=== PATIENT | male | born 1955 | race Caucasian/White ===

== ENCOUNTER → 2021-06-22 | Outpatient (CLI) | payer OTHER ==
[~2021-06-22] MED LIST: CRESTOR20 MG PO; DEPAKOTE250 MG PO; DIVALPROEX SOD500 MG PO; IRBESARTAN-HCT1 EAC1 PO; LEVETIRACETAM750 MG PO; METOPROLOL TART25 MG PO; NORVASC10 MG PO; ZONEGRAN100 MG PO
--- NOTE | 2021-06-22 08:54 | EKG ---
[address] [address] [place] [address] ELECTROCARDIOGRAM REPORT Name: VADIM SWAIN Room #: LARISA Sandhu#: [id number] Admission: 06/22/21 Attend Phys: Nikita Stewart MD Discharge: Date of : 51 Report #: [id number] [facility] Test Date: 2021-06-22 Test Time: 08:44:23 Pat Name: VADIM SWAIN Department: Room: Gender: M Payroll Services Analyst: NADER : 1955 Requested By: Nikita Stewart Order Number: [id number] MD: John Hilliard Measurements Intervals [place] Rate: 67 P: 40 DC: 165 QRS: 16 QRSD: 102 T: 30 QT: 393 QTc: 415 Interpretive Statements Sinus rhythm Ventricular premature complex Abnormal R-wave progression, early transition Inferior infarct, old Baseline wander in lead(s) V1 No previous ECG available for comparison Electronically Signed On 06-22-2021 8:54:37 CDT by John Hilliard [email or web address] <ELECTRONICALLY SIGNED> By: John Hilliard MD, [facility] 06/22/21 0854 [id number] 0844 John Hilliard MD, FACC /EPI
[2021-06-22 09:01] LABS: HEMOGLOBIN 14.6 gm/dL (14.0-18.0); MCH 31.8 pg (26.0-34.0); MCHC 33.3 g/dL (28.0-37.0); MCV 95.6 fL (80.0-100.0); RBC 4.6 mil/uL (4.50-6.00); RDW 12.9 % (10.5-14.5); WBC 8.1 thou/uL (4.0-11.0)
[2021-06-22 09:07] LABS: URINE BILIRUBIN NEGATIVE (Negative); URINE BLOOD NEGATIVE (Negative); URINE CLARITY CLEAR; URINE COLOR YELLOW; URINE GLUCOSE-RANDOM* NEGATIVE (Negative); URINE KETONES TRACE (Negative); URINE LEUKOCYTES-REFLEX NEGATIVE (Negative); URINE NITRITE-REFLEX NEGATIVE (Negative); URINE PROTEIN (DIPSTICK) NEGATIVE (Negative); URINE SPECIFIC GRAVITY 1.025 (1.005-1.035); URINE UROBILINOGEN 0.2 E.U./dl (0.2-1.0)
[2021-06-22 09:17] LABS: INR 0.98; PROTIME 10.7 Seconds (10.5-12.1)
[2021-06-22 09:20] LABS: ALBUMIN 3.3 g/dL (3.4-5.0); CALCIUM 8.8 mg/dL (8.5-10.1); CREATININE 1.1 mg/dL (0.7-1.3); POTASSIUM 3.8 mmol/L (3.5-5.1)
== END | disposition home or self-care (01) ==
LOC: PAC 08:01
PROVIDERS: ATTEND Orthopaedic Surgery
DX: Z01.818 Encounter for other preprocedural examination (principal); M17.9 Osteoarthritis of knee, unspecified; M25.561 Pain in right knee; R94.31 Abnormal electrocardiogram [ECG] [EKG]

== ENCOUNTER 2021-07-03 06:47 | Observation (INO) | payer OTHER ==
[~2021-07-03] VITALS: Ht 175.3 cm; Wt 97.5 kg
[2021-07-03 09:29] VITALS: BP 132/79
[2021-07-03 16:30] VITALS: BP 118/65
--- NOTE | 2021-07-03 16:49 | NUR ---
Pt transferred to unit from PACU. Pt a&ox4. Pain controlled. Dressing c/d/i. Hemovac drain in place. Polar care in place. ANGIE hose and SCDs in place. IVF and IV antibiotics infusing. Physical therapy will work with patient tomorrow. Call light within reach. Will continue to monitor.
[2021-07-03 19:40] VITALS: BP 153/86
--- NOTE | 2021-07-04 04:10 | NUR ---
HEMOVAC STILL PUTTING OUT QUITE ABIT. PT HAS POLAR HOMER IN PLACE TO R KNEE WELL HAKAN DRSG. HE HAS BEEN USING URINAL.
[2021-07-04 05:13] LABS: BASOPHILS 0.1 % (0.0-2.0); HEMOGLOBIN 12.2 gm/dL (14.0-18.0); LYMPHOCYTES 7.4 % (24.0-44.0); MCH 32.2 pg (26.0-34.0); MCV 94.8 fL (80.0-100.0); MONOCYTES 6.1 % (1.0-8.0); PLATELET COUNT 202 thou/uL (150-400); POLYS 86.4 % (36.0-66.0); RDW 12.9 % (10.5-14.5); WBC 13.9 thou/uL (4.0-11.0)
[2021-07-04 05:30] VITALS: BP 132/72
[2021-07-04 05:32] LABS: CALCIUM 8.1 mg/dL (8.5-10.1); MAGNESIUM 1.8 mg/dL (1.8-2.4); POTASSIUM 3.9 mmol/L (3.5-5.1)
[2021-07-04 07:19] VITALS: BP 132/71
--- NOTE | 2021-07-04 09:12 | NUR ---
Assumed care of pt at 0700. Pt a&ox4. Dressing c/d/i. Pain controlled with prn pain medications. Voiding well. Tolerating diet. Working with physical therapy this am. Will d/c hemovac drain. Call light within reach. Fall precautions in place. Will continue to monitor.
--- NOTE | 2021-07-04 09:40 | NUR ---
Chart review. Dx Total knee replacement. Visited with Alexander at bedside. a & o x 3 and able to make his needs know. Intro to cm, and discharge planning. He lives at home with and extended family, his mother in law is on service with [facility] and that is who he wants to use per bill. Has ramp to enter the home. Will need fww at [facility], sent referral to [facility] and it was ok to issue him walker from here at [facility] per [facility]. Will cont following as needed. Anticipated dc tomorrow.
--- NOTE | 2021-07-04 11:51 | O ---
[facility] [address] [place] [address] OPERATIVE REPORT Name: VADIM SWAIN Room #: 439-P [facility]#: [id number] Admission: 07/03/21 Attend Phys: Nikita Stewart MD Discharge: Date of : 51 Report #: [id number] THIS REPORT FOR: cc: Raisa Jones MD, Lisa MD Clymer,Nikita Barroso MD ~ DATE OF SERVICE: 07/03/2021 PREOPERATIVE DIAGNOSIS: Degenerative arthritis, right knee with varus malalignment. POSTOPERATIVE DIAGNOSIS: Degenerative arthritis, right knee with varus malalignment. PROCEDURE: Right total knee arthroplasty. SURGEON: Nikita Stewart MD INDICATIONS: This generally healthy, active 65-year-old gentleman complains of right knee pain with moderate varus malalignment and mild flexion contracture. He has tried conservative measures including anti-inflammatories, injection therapy and independent exercise without much benefit. He has decided to go ahead with right total knee arthroplasty. DESCRIPTION OF PROCEDURE: The patient was taken to the operating room where he was placed under general anesthesia. A femoral nerve block was also applied. The right knee and leg were meticulously prepped and draped. A thigh tourniquet was applied and inflated to 300 mmHg. An anterior longitudinal skin incision was made and carried through the medial retinaculum. The patella was reflected laterally. Marked degenerative change in all three compartments was noted. The Blair and Nephew knee system was utilized. Intramedullary guides were used on both the femur and the tibia. The femur was cut in 5 degrees of valgus and a size 5 femoral component seemed to fit nicely. The tibia was cut perpendicular to the long axis of the bone and a size 5 tibial component also fit nicely. A trial reduction was performed and a 9 mm polyethylene insert fit nicely. Sufficient bone was resected to correct the mild flexion contracture, cuts also improved the varus malalignment. A patellar cutting guide was used and the patellar surface was resected. A 35 mm patellar button seemed to fit nicely with appropriate anchor holes. The patella seemed to track well and appears to be stable. The trial components were removed. The intramedullary canal was blocked with a bone block on both the femoral and tibial sides. The surfaces were thoroughly irrigated and dried. The permanent components were brought up on the field. The methyl methacrylate cement was mixed and injected into the porous surface of the proximal tibia. The Blair and Nephew size 5 right Betty II tibial [address] [address] OPERATIVE REPORT Name: VADIM SWAIN Room #: 439-P [facility] Chaim Sandhu#: [id number] Admission: 07/03/21 Attend Phys: Nikita Stewart MD Discharge: Date of : 51 Report #: [id number] baseplate was inserted in appropriate alignment. It was impacted into position. Excess cement was removed around its margin. The size 9 mm cruciate retaining Legion polyethylene insert was then snapped into place. It seated nicely and appeared to be secure. The right size 5 cruciate retaining Legion porous femoral component was then applied. A small amount of cement was used at the anchor holes where the bone is mildly soft. This component also seated nicely and appeared to be secure. A 35 mm Betty II Patellar resurfacing button was applied using cement and appropriate anchor holes. It was secured with a patellar clamp until the cement had hardened. Once the cement was firm, range of motion, alignment and stability were all assessed and felt to be satisfactory. A single Hemovac was left in the wound. The tourniquet was deflated after a total tourniquet time of 52 minutes. The fascia was closed with multiple #1 Vicryl sutures. The subcutaneous tissues were closed with 0 Monocryl. The skin was closed with skin kaila. A sterile dressing was applied. The patient was awakened and returned to recovery room in good condition. <ELECTRONICALLY SIGNED> By: Nikita Stewart MD 07/04/21 1151 1030 1057 Nikita Stewart MD /nt
[2021-07-04 16:17] VITALS: BP 127/67
[2021-07-04 19:59] VITALS: BP 125/59
--- NOTE | 2021-07-05 01:21 | NUR ---
ASSESSED AT START OF SHIFT PT RESTING IN BED. C/O PAIN AND HYDROCODONE GIVEN. UP WITH ASSIST TO THE BSC. URINAL AT BEDSIDE. FALL PREC MAINTAINED AND NO FURTHER SIGNS OF DISCOMFORT. WILL CONT TO MONITOR.
[2021-07-05 03:11] LABS: HEMATOCRIT 32.5 % (42.0-52.0); HEMOGLOBIN 11.1 gm/dL (14.0-18.0); MCH 32.6 pg (26.0-34.0); MCHC 34.1 g/dL (28.0-37.0); MCV 95.5 fL (80.0-100.0); RBC 3.4 mil/uL (4.50-6.00); RDW 13.1 % (10.5-14.5); WBC 14.2 thou/uL (4.0-11.0)
[2021-07-05 05:39] VITALS: BP 148/76
[2021-07-05 07:45] VITALS: BP 141/77
--- NOTE | 2021-07-05 09:27 | NUR ---
ASSUMED PT CARE THIS AM. PT IS ALERT & ORIENTED X4. PT HAS IV SITE ON LHAND SALINE LOCKED. PT IS UP WITH ASSIST X1 WITH WALKER AND GAITBELT TO THE BEDSIDE COMMODE. PT WAS WORKING WITH PHYSICAL THERAPY THIS AM. PER PT OK AND SAFE TO DC TODAY. PT HAS BILATERAL ANGIE HOSES, HAKAN DRESSING AND SCD. PT TOLERATED DIET AND MEDICATION WELL. WILL CONTINUE TO MONITOR PT. FOLLOW POC.
[2021-07-05 09:47] VITALS: BP 141/77
--- NOTE | 2021-07-05 09:55 | NUR ---
Gavin was up working with physical therapy. Anticipate dc home with [facility] today. [facility] - fww, he will go home with the walker.
--- NOTE | 2021-07-07 09:34 | D ---
[facility] [address] [place] [address] DISCHARGE SUMMARY Name: VADIM SWAIN Room #: 439-P [facility] Chaim Sandhu#: [id number] Admission: 07/03/21 Attend Phys: Nikita Stewart MD Discharge: 07/05/21 Date of : 51 Report #: [id number] THIS REPORT FOR: cc: Raisa Jones MD,Raisa Stewart,Nikita Barroso MD ~ DATE OF SERVICE: 07/05/2021 FINAL DISCHARGE DIAGNOSIS: End-stage degenerative arthritis, right knee. OPERATION: Right total knee arthroplasty. HISTORY: This healthy, fit and generally active 65-year-old gentleman has severe progressive right knee pain. His symptoms have not improved with time and medications or knee injection. He has elected to go ahead with right total knee arthroplasty. HOSPITAL COURSE: The patient was admitted and taken to the operating room on 07/03/2021. He underwent right total knee replacement, which he tolerated well. Postoperatively, he made rapid progress and was able to rapidly advance ambulation with Physical Therapy assistance. He resumed a regular diet and his routine medications. His Hemovac was removed after a total output of about 400 mL. His hemoglobin remained stable at 12. He seems to be safe and ready for discharge on the evening of 07/04/2021. He will go home with family assistance and then plans for outpatient physical therapy. His discharge medications include Xarelto 10 mg daily and hydrocodone 10/325 one q. 4-6 hours as needed for pain. He will call if there should be problems or questions and I will see him back in 1 week for followup and in 2 weeks for suture removal. We will plan for outpatient physical therapy. <ELECTRONICALLY SIGNED> By: Nikita Stewart MD 07/07/21 0934 1130 1137 Nikita Stewart MD /nt
== END 2021-07-05 10:49 | disposition home or self-care (01) ==
LOC: OR → TBA 06:47 → OR 06:47 → TBA 06:48 → OR 08:09 → EDSTATUS 09:51 → OR 10:09 → PRE 10:59 → 4S 13:57 → OR 13:58 → 4S 13:58 → OR 16:32 → 4S 07-05 10:49
PROVIDERS: Nurse Practitioner; ADMIT Orthopaedic Surgery; ATTEND Orthopaedic Surgery
DX: M17.11 Unilateral primary osteoarthritis, right knee (principal); M21.161 Varus deformity, not elsewhere classified, right knee; Z20.822 Contact with and (suspected) exposure to COVID-19; I25.10 Atherosclerotic heart disease of native coronary artery without angina pectoris; I10 Essential (primary) hypertension; E78.5 Hyperlipidemia, unspecified; G40.909 Epilepsy, unspecified, not intractable, without status epilepticus; Z79.899 Other long term (current) drug therapy; Z95.1 Presence of aortocoronary bypass graft
CPT/HCPCS: 50010; 50101; 50415; 50954; 51130; 51225; 51320; 51412; 52001; 56525; 57095; 57103; 57104; 57180; 58449; 62110; 62900; 64039; 70005